=== PATIENT | male | born 1960 | race African-American/Black ===

== ENCOUNTER → 2020-02-25 | Outpatient (CLI) | payer BC ==
--- NOTE | 2020-02-25 10:44 | RAD ---
EXAM: HIP LEFT 2V WITH PELVIS. HISTORY: Left hip pain. COMPARISON: None. FINDINGS: No fractures are identified throughout. The joint spaces and alignment of both hips are maintained. IMPRESSION: 1. No fracture or clear degenerative change. Electronically signed by: Zuri Back MD (02/25/2020 10:41 AM) [facility]
== END ==
LOC: PMG 09:46
PROVIDERS: ATTEND Physician Assistant
DX: M25.552 Pain in left hip (principal)
CPT/HCPCS: 73502